=== PATIENT | female | born 1990 | race Asian ===

== ENCOUNTER 2016-12-14 06:14 | Outpatient (CLI) | payer OTHER ==
[~2016-12-14] VITALS: Ht 162.6 cm; Wt 92.7 kg
[2016-12-14 08:49] LABS: PATH.CAST-FLAG NOT PRESENT; SPERM-FLAG NOT PRESENT; SRC-FLAG NOT PRESENT; YLC-FLAG NOT PRESENT
[2016-12-14 09:52] LABS: XTAL-FLAG NOT PRESENT
== END 2016-12-14 08:44 | disposition home or self-care (01) ==
LOC: LDOP 06:14
PROVIDERS: ATTEND Obstetrics & Gynecology
DX: O26.893 Other specified pregnancy related conditions, third trimester (principal); R10.9 Unspecified abdominal pain; O46.93 Antepartum hemorrhage, unspecified, third trimester; Z3A.28 28 weeks gestation of pregnancy
CPT/HCPCS: 59025; 81001; 99211; G0463

== ENCOUNTER 2017-02-01 19:08 | Outpatient (CLI) | payer OTHER ==
[~2017-02-01] VITALS: Ht 160 cm; Wt 95.9 kg
[2017-02-01 19:52] VITALS: BP 115/67
== END 2017-02-01 20:27 | disposition home or self-care (01) ==
LOC: LDOP 19:08
PROVIDERS: ATTEND Obstetrics & Gynecology
DX: O26.893 Other specified pregnancy related conditions, third trimester (principal); O43.123 Velamentous insertion of umbilical cord, third trimester; O62.9 Abnormality of forces of labor, unspecified; O99.343 Other mental disorders complicating pregnancy, third trimester; R10.9 Unspecified abdominal pain; F32.9 Major depressive disorder, single episode, unspecified; Z3A.35 35 weeks gestation of pregnancy
CPT/HCPCS: 59025; 81003; 87086; 99211; G0463

== ENCOUNTER 2017-02-23 04:38 | Outpatient (CLI) | payer OTHER ==
[2017-02-23 05:09] VITALS: BP 129/83
== END 2017-02-23 05:50 | disposition home or self-care (01) ==
LOC: LDOP 04:38
PROVIDERS: ATTEND Obstetrics & Gynecology
DX: O26.893 Other specified pregnancy related conditions, third trimester (principal); O99.343 Other mental disorders complicating pregnancy, third trimester; F32.9 Major depressive disorder, single episode, unspecified; R10.9 Unspecified abdominal pain; Z3A.38 38 weeks gestation of pregnancy
CPT/HCPCS: 59025; 81001; 87086; 99211; G0463

== ENCOUNTER 2017-02-23 10:59 | Outpatient (CLI) | payer OTHER ==
[~2017-02-23] VITALS: Ht 162.6 cm; Wt 99.5 kg
[2017-02-23 11:08] VITALS: BP_SYST 127; BP_SYST 136; BP_DIAS 101; BP_DIAS 86
== END 2017-02-23 13:29 | disposition home or self-care (01) ==
LOC: LDOP 10:59
PROVIDERS: ATTEND Obstetrics & Gynecology
DX: O26.893 Other specified pregnancy related conditions, third trimester (principal); O43.123 Velamentous insertion of umbilical cord, third trimester; O99.343 Other mental disorders complicating pregnancy, third trimester; O62.9 Abnormality of forces of labor, unspecified; R10.9 Unspecified abdominal pain; F32.9 Major depressive disorder, single episode, unspecified; Z3A.39 39 weeks gestation of pregnancy
CPT/HCPCS: 59025; 99211; G0463

== ENCOUNTER 2017-02-24 12:23 | Inpatient (IN) | payer OTHER ==
[~2017-02-24] VITALS: Ht 162.6 cm; Wt 99.5 kg
[2017-02-24] MEDS ORDERED: D5%-LACTATED RINGERS 1,000 ML IV SCH (12:48)
[2017-02-24] MEDS ORDERED: OXYTOCIN 30U/ 0.9% NaCL 500ML 500 ML IV PRN (12:48)
[2017-02-24] MEDS ORDERED: OXYTOCIN 30U/ 0.9% NaCL 500ML 500 ML IV ONE (12:48)
[2017-02-24] MEDS ORDERED: FENTANYL PF 100 MCG/2ML IV PRN (13:00)
[2017-02-24] MEDS ORDERED: PLEASE ENTER HEIGHT AND WEIGHT MC SCH (13:00)
[2017-02-24] MEDS ORDERED: CALCIUM CARBONATE 500 MG TAB.CHEW PO PRN (13:00)
[2017-02-24] MEDS ORDERED: ONDANSETRON 2MG/ML, 2ML IVPush PRN (13:00)
[2017-02-24] MEDS ORDERED: FENTANYL PF 100 MCG/2ML IVPush PRN (13:00)
[2017-02-24] MEDS ORDERED: PENICILLIN GK 5,000,000 UNITS in DEXTROSE 5% 100 ML IVPB ONE (13:00)
[2017-02-24] MEDS ORDERED: LIDOCAINE 1%, 20ML ONE (13:02)
[2017-02-24] MEDS ORDERED: MISOPROSTOL 200 MCG TABLET ONE (13:02)
[2017-02-24] MEDS ORDERED: NEWBORN KIT ONE (13:03)
[2017-02-24] MEDS ORDERED: OXYTOCIN 30U/ 0.9% NaCL 500ML 500 ML ONE ×2 (13:03→23:11)
[2017-02-24] MEDS: LACTATED RINGERS 1,000 ML IV SCH ×2 (13:13→13:43)
[2017-02-24 13:25] VITALS: BP 133/75
[2017-02-24] MEDS ORDERED: LACTATED RINGERS 1,000 ML IV SCH ×3 (13:39→14:40)
[2017-02-24] MEDS ORDERED: FENTANYL/BUPIV./NS/PF 250 ML EPIDCONT SCH ×3 (13:39→14:40)
[2017-02-24] MEDS ORDERED: LACTATED RINGERS 1,000 ML IVBOLUS PRN ×3 (14:00→15:00)
[2017-02-24] MEDS ORDERED: FENTANYL/BUPIV./NS/PF 250 ML EPIDCONT ONE (14:05)
[2017-02-24] MEDS ORDERED: LIDOCAINE/PF 1.5%-EPI 1:200K, 30ML ONE (14:05)
[2017-02-24] MEDS: PENICILLIN GK 2,500,000 UNITS in DEXTROSE 5% 100 ML IVPB SCH ×2 (17:16→21:11)
[2017-02-24] MEDS ORDERED: DIPHENHYDRAMINE 50 MG/ML, 1ML IVPush ONE (18:30)
[2017-02-24] MEDS ORDERED: IBUPROFEN 600 MG TABLET ONE (23:44)
[2017-02-24] MEDS: IBUPROFEN 600 MG TABLET PO PRN (23:45)
[2017-02-25] VITALS (9 sets, daily range): BP systolic 102–127; BP diastolic 66–85
[2017-02-25] MEDS ORDERED: OXYTOCIN 30U/ 0.9% NaCL 500ML 500 ML IV SCH (01:19)
[2017-02-25] MEDS: IBUPROFEN 600 MG TABLET PO PRN ×3 (05:54→22:49)
[2017-02-25] MEDS: PRENATAL VIT/IRON/FA 1 EACH TABLET PO SCH (08:21)
[2017-02-25] MEDS: DOCUSATE 100 MG CAPSULE PO PRN (08:21)
[2017-02-25] MEDS: ACETAMINOPHEN 325 MG TABLET PO PRN ×3 (08:21→22:50)
[2017-02-25 23:01] LABS: ASPARTATE AMINO TRANSFERASE 28 U/L (15-37); BLOOD UREA NITROGEN 9 mg/dL (7-18)
[2017-02-25] MEDS ORDERED: OXYcodone/APAP 5/325MG TABLET PO PRN (23:30)
[2017-02-26 05:40] VITALS: BP 112/75
[2017-02-26 07:00] VITALS: BP_SYST 107; BP_SYST 118; BP_SYST 121; BP_DIAS 72; BP_DIAS 80; BP_DIAS 83
[2017-02-26] MEDS ORDERED: IBUP-1222 PO (09:16)
[2017-02-26] MEDS ORDERED: OXYC-302 PO (09:17)
[2017-02-26] MEDS ORDERED: DOCU-30 PO (09:17)
[2017-02-26] MEDS: IBUPROFEN 600 MG TABLET PO PRN ×2 (09:27→16:21)
[2017-02-26] MEDS: PRENATAL VIT/IRON/FA 1 EACH TABLET PO SCH (09:27)
[2017-02-26] MEDS: DOCUSATE 100 MG CAPSULE PO PRN (09:27)
== END 2017-02-26 16:30 | disposition home or self-care (01) | DRG 775 ==
LOC: LDOP 12:23 → LDIP 12:48 → 2NW 02-25 00:31
PROVIDERS: ADMIT Obstetrics & Gynecology; ATTEND Obstetrics & Gynecology
PROC: 10E0XZZ Delivery of Products of Conception, External Approach (ICD-10-PCS; principal; 2017-02-24)
PROC: 0KQM0ZZ Repair Perineum Muscle, Open Approach (ICD-10-PCS; 2017-02-24)
PROC: 3E0R3CZ (ICD-10-PCS; 2017-02-24)
PROC: 00HU33Z Insertion of Infusion Device into Spinal Canal, Percutaneous Approach (ICD-10-PCS; 2017-02-24)
DX: O99.824 Streptococcus B carrier state complicating childbirth (principal); O76 Abnormality in fetal heart rate and rhythm complicating labor and delivery; O70.1 Second degree perineal laceration during delivery; Z37.0 Single live birth; Z3A.39 39 weeks gestation of pregnancy
CPT/HCPCS: 36415; 80053; 82803; 85025; 86850; 86900; 89060; J2540; J2590; J7120; Q0114